=== PATIENT | female | born 1985 | race Caucasian/White ===

== ENCOUNTER 2019-03-29 15:56 | Inpatient (IN) | payer BC ==
[2019-03-29] MEDS ORDERED: ONDANSETRON 4 MG/2 ML VIAL IVP PRN (16:40)
[2019-03-29] MEDS ORDERED: LACTATED RINGERS 1,000 ML IV ONE (16:40)
[2019-03-29] MEDS ORDERED: NALOXONE 0.4 MG/ML 1 ML VIAL IV PRN (16:40)
[2019-03-29] MEDS: IOPAMIDOL CONTRAST (ORAL USE) VIAL PO PRN ×2 (17:20→18:19)
[2019-03-29 17:24] LABS: Basophils % (A) 1 %; Eosinophils % (A) 1 %; HCT 38.2 % (34.0-46.0); Lymphocytes # (A) 1.9 k/uL (1.0-4.8); Lymphocytes % (A) 31 %; MCH 30.6 pg (25.0-35.0); MCHC 31.5 g/dL (31.0-37.0); MCV 97.1 fL (80.0-100.0); Mean Platelet Volume 6.3; Monocytes # (A) 0.3 k/uL (0-1.0); Monocytes % (A) 5 %; Neutrophils # (A) 3.6 k/uL (1.3-7.7); Neutrophils % (A) 61 %; Platelet Count 274 k/uL (150-450); RBC 3.93 m/uL (3.80-5.40); RDW 12.3 % (11.5-15.5); WBC 5.9 k/uL (3.8-10.6)
[2019-03-29 17:33] LABS: ALT 16 U/L (9-52); AST 21 U/L (14-36); African American GFR (CKD) >90 (>60 ml/min/1.73 sqM); Albumin 4.2 g/dL (3.5-5.0); Alkaline Phosphatase 42 U/L (38-126); Anion Gap 6 mmol/L; Blood Urea Nitrogen 12 mg/dL (7-17); Calcium 9.3 mg/dL (8.4-10.2); Carbon Dioxide 26 mmol/L (22-30); Chloride 109 mmol/L (98-107); Glucose 93 mg/dL (74-99); Potassium 4.3 mmol/L (3.5-5.1); Sodium 141 mmol/L (137-145); Total Bilirubin 0.3 mg/dL (0.2-1.3)
[2019-03-29] MEDS: HYDROmorphone 0.5 MG/0.5 ML SYRINGE IVP PRN ×2 (18:45→21:59)
[2019-03-29 19:38] VITALS: BMI 29.3
--- NOTE | 2019-03-29 19:58 | CT ---
EXAMINATION TYPE: CT abdomen pelvis w con DATE OF EXAM: 03/29/2019 COMPARISON: None INDICATION: LLQ pain DLP: 902.9 mGycm, Automated exposure control for dose reduction was used. CONTRAST: 100 mL of Isovue 300. Study performed with Oral Contrast TECHNIQUE: Axial images were obtained from above the diaphragm to the pubic rami in the axial plane a t 5 mm thick sections. Reconstructed images are reviewed on the computer in the coronal plane. FINDINGS: Limited CT sections are obtained the lung bases. The lung bases are clear. CT ABDOMEN: LAP-BAND is present. Liver: Normal Spleen: Normal Pancreas: Normal Adrenal glands: The adrenal glands are normal. Gallbladder: Normal Kidneys: No masses are evident. No hydronephrosis is present. No cysts are present. Delayed images were obtained through the kidneys, which remain unremarkable. Aorta: Vascular calcification is within the aorta. Inferior vena cava: Normal. CT PELVIS: Loops of bowel within the abdomen and pelvis are normal. There are loops of bowel lacking oral co ntrast limiting their evaluation. Appendix: Not visualized Urinary bladder: Normal Genitourinary structures: Uterus is normal. Adnexal regions are clear. Osseous structures: No suspicious lytic or sclerotic lesions. IMPRESSIONS: 1. No significant abnormality to account for left lower quadrant pain
[2019-03-29] MEDS: HYDROcodone/APAP 5-325MG 1 EACH TAB PO PRN (20:34)
[2019-03-30] MEDS: HYDROmorphone 0.5 MG/0.5 ML SYRINGE IVP PRN ×2 (02:57→07:56)
[2019-03-30] MEDS ORDERED: LACTATED RINGERS 1,000 ML IV ONE ×2 (09:41)
[2019-03-30] MEDS ORDERED: LIDOCAINE 1% INJ 10MG/ML (20 ML MDV) ONE (09:43)
[2019-03-30] MEDS ORDERED: PROPOFOL 10 MG/ML 20 ML VIAL IV ONE (09:43)
--- NOTE | 2019-03-30 09:46 | P.GSHP ---
History of Present Illness H&P Date: 03/29/19 This is a 33-year-old female who was seen in bariatric office. Patient had significant left-sided abdominal pain. Patient had some rebound tenderness. Patient was admitted to the hospital for further workup. She states that her pain has been on-and-off for the last 2 weeks. She describes the pain is disabling. Past Medical History Past Medical History: No Reported History History of Any Multi-Drug Resistant Organisms: None Reported Past Surgical History: Bariatric Surgery, Section, Cholecystectomy, Tubal Ligation Additional Past Surgical History / Comment(s): lap band placed [address] Kaufman, Tubal ligation x2, Right oopherectomy, cervical ablation, cervix re moved, bilateral breast augmentation, x1 Past Anesthesia/Blood Transfusion Reactions: No Reported Reaction Additional Past Anesthesia/Blood Transfusion Reaction / Comment(s): No hx of blood transfusions to date Past Psychological History: No Psychological Hx Reported Smoking Status: Former smoker Past Alcohol Use History: None Reported Additional Past Alcohol Use History / Comment(s): smoked 1pk day x 10 years. Quit 2008 Past Drug Use History: None Reported - Past Family History Father Family Medical History: Diabetes Mellitus, Hyperlipidemia, Prostate Disorder Additional Family Medical History / Comment(s): Type 2 DM, BPH Medications and Allergies Home Medications Medication Instructions Recorded Confirmed Type No Known Home Medications 05/12/17 03/29/19 History Allergies Allergy/AdvReac Type Severity Reaction Status Date / Time No Known Allergies Allergy Verified 03/29/19 18:35 Surgical - Exam Vital Signs Temp Pulse BP Pulse Ox 97.8 F 75 104/66 99 03/29/19 02:20 03/29/19 02:20 03/29/19 02:20 03/29/19 02:20 - General well developed, well nourished, no distress - Eyes PERRL - ENT normal pinna - Neck no masses - Respiratory normal expansion - Cardiovascular Rhythm: regular - Abdomen Marked tenderness left side of abdomen. With guarding Abdomen: soft Results - Labs 03/29/19 17:12 03/29/19 17:12 Abnormal Lab Results - Last 24 Hours (Table) 03/29/19 Range/Units 17:12 Chloride 109 H (98-107) mmol/L Diabetes panel 03/29/19 Range/Units 17:12 Sodium 141 (137-145) mmol/L Potassium 4.3 (3.5-5.1) mmol/L Chloride 109 H (98-107) mmol/L Carbon Dioxide 26 (22-30) mmol/L BUN 12 (7-17) mg/dL Creatinine 0.76 (0.52-1.04) mg/dL Glucose 93 (74-99) mg/dL Calcium 9.3 (8.4-10.2) mg/dL AST 21 (14-36) U/L ALT 16 (9-52) U/L Alkaline Phosphatase 42 (38-126) U/L Total Protein 7.0 (6.3-8.2) g/dL Albumin 4.2 (3.5-5.0) g/dL Calcium panel 03/29/19 Range/Units 17:12 Calcium 9.3 (8.4-10.2) mg/dL Albumin 4.2 (3.5-5.0) g/dL Pituitary panel 03/29/19 Range/Units 17:12 Sodium 141 (137-145) mmol/L Potassium 4.3 (3.5-5.1) mmol/L Chloride 109 H (98-107) mmol/L Carbon Dioxide 26 (22-30) mmol/L BUN 12 (7-17) mg/dL Creatinine 0.76 (0.52-1.04) mg/dL Glucose 93 (74-99) mg/dL Calcium 9.3 (8.4-10.2) mg/dL Adrenal panel 03/29/19 Range/Units 17:12 Sodium 141 (137-145) mmol/L Potassium 4.3 (3.5-5.1) mmol/L Chloride 109 H (98-107) mmol/L Carbon Dioxide 26 (22-30) mmol/L BUN 12 (7-17) mg/dL Creatinine 0.76 (0.52-1.04) mg/dL Glucose 93 (74-99) mg/dL Calcium 9.3 (8.4-10.2) mg/dL Total Bilirubin 0.3 (0.2-1.3) mg/dL AST 21 (14-36) U/L ALT 16 (9-52) U/L Alkaline Phosphatase 42 (38-126) U/L Total Protein 7.0 (6.3-8.2) g/dL Albumin 4.2 (3.5-5.0) g/dL Assessment and Plan Assessment: Left-sided abdominal pain. Patient was admitted to hospital for further workup.
--- NOTE | 2019-03-30 09:54 | P.OP ---
Date of Procedure: 03/30/19 Preoperative Diagnosis: Abdominal pain Postoperative Diagnosis: Antral gastritis Procedure(s) Performed: EGD Anesthesia: MAC Surgeon: Luis Enrique Kaufman Pathology: other (antrum) Condition: stable Disposition: PACU Description of Procedure: The patient's placed on the endoscopy table in the lateral position. She received IV sedation. The gastroscope was placed oropharynx and passed in the esophagus and into the stomach. The scope was then placed through the pylorus. The first and second portion of duodenum appeared normal. There is no incision any duodenitis or ulcers. The scope was then brought back and the antrum and this was mildly inflamed. A abscess performed. The scope was unretroflexed and the remainder of the stomach appeared normal. There was no significant inflammatory changes seen around the patient's LAP-BAND. The gastric pouch appeared small above the band. The GE junction was at 40 cm the distal esophagus appeared normal. The proximal esophagus appeared normal. Scope was withdrawn for patient.
--- NOTE | 2019-03-30 09:56 | P.PN ---
Progress Note - Text Progress Note Date: 03/30/19 The patient feels better. Her left lower quadrant pain is improved. She has minimal complaints of nausea. Her EGD performed showed evidence of minimal gastritis. The patient will be fed and if she tolerates a regular diet she'll be discharged home today.
[2019-03-30 10:17] LABS: Basophils % (A) 1 %; Eosinophils # (A) 0.1 k/uL (0-0.7); Eosinophils % (A) 1 %; HCT 34.1 % (34.0-46.0); HGB 11.2 gm/dL (11.4-16.0); Lymphocytes # (A) 1.6 k/uL (1.0-4.8); Lymphocytes % (A) 42 %; MCH 31.5 pg (25.0-35.0); MCV 95.6 fL (80.0-100.0); Mean Platelet Volume 5.7; Monocytes # (A) 0.3 k/uL (0-1.0); Monocytes % (A) 7 %; Neutrophils # (A) 1.8 k/uL (1.3-7.7); Neutrophils % (A) 47 %; Platelet Count 241 k/uL (150-450); RBC 3.56 m/uL (3.80-5.40); RDW 12.1 % (11.5-15.5); WBC 3.9 k/uL (3.8-10.6)
[2019-03-30] MEDS: HYDROcodone/APAP 5-325MG 1 EACH TAB PO PRN ×2 (10:38→21:14)
[2019-03-30] MEDS ORDERED: IBUPROFEN 600 MG TAB PO STA (12:13)
--- NOTE | 2019-03-30 13:11 | P.CONS ---
History of Present Illness - Reason for Consult Consult date: 03/30/19 Medical management - Chief Complaint Abdominal discomfort - History of Present Illness Patient is a 32-year-old female with a known history of lap band placement in by Dr. Obregon 2009 and previous history of smoking came to ER with complaints of left upper quadrant abdominal discomfort and feeling fullness last bloating for the past 1 week. Denied in diarrhea or recent illnesses. Patient does have minimally discomfort rather than pain. Patient does have nausea or supple vomiting. No fever no chills. CT of abdomen pelvis done in the ER showed no significant abnormality. Patient underwent EGD which showed mild gastritis. currently patient is tolerating oral diet. Laboratory data reviewed. Review of Systems Constitutional: Patient denies any fever or chills . No generalized weakness or weight loss. Abdomen: Patient denied nausea vomiting and diarrhea and abdominal pain. Bloating sensation Cardiovascular: Patient denies any chest pain or short of breath no palpitations. Respiratory: patient denied any cough is from production. No shortness of breath Neurologic: Patient denied any numbness or tingling headache. Musculoskeletal: Patient denies any complaints of joint swelling or deformity. Skin: Negative Psychiatric: Negative Endocrine: No heat or cold intolerance. No recent weight gain. Genitourinary: No dysuria or hematuria. All other 14 point ROS negative except the above Past Medical History Past Medical History: No Reported History History of Any Multi-Drug Resistant Organisms: None Reported Past Surgical History: Bariatric Surgery, Section, Cholecystectomy, Tubal Ligation Additional Past Surgical History / Comment(s): lap band placed [address] Kaufman, Tubal ligation x2, Right oopherectomy, cervical ablation, cervix removed, bilateral breast augmentation, x1 Past Anesthesia/Blood Transfusion Reactions: No Reported Reaction Additional Past Anesthesia/Blood Transfusion Reaction / Comm: No hx of blood transfusions to date Past Psychological History: No Psychological Hx Reported Smoking Status: Former smoker Past Alcohol Use History: None Reported Additional Past Alcohol Use History / Comment(s): smoked 1pk day x 10 years. Quit 2008 Past Drug Use History: None Reported - Past Family History Father Family Medical History: Diabetes Mellitus, Hyperlipidemia, Prostate Disorder Additional Family Medical History / Comment(s): Type 2 DM, BPH Medications and Allergies Home Medications Medication Instructions Recorded Confirmed Type No Known Home Medications 05/12/17 03/29/19 History Allergies Allergy/AdvReac Type Severity Reaction Status Date / Time No Known Allergies Allergy Verified 03/29/19 18:35 Physical Exam Vitals: Vital Signs Temp Pulse Resp BP Pulse Ox 03/30/19 10:16 98.2 F 67 93/60 03/30/19 07:00 98.4 F 70 12 97/61 100 03/29/19 20:25 98.2 F 71 16 96/57 97 03/29/19 17:00 98.4 F 77 18 122/63 98 Intake and Output 03/29/19 03/30/19 03/30/19 22:59 06:59 14:59 Intake Total 500 1000 100 Balance 500 1000 100 Intake: IV 100 Intake, IV Titration 500 1000 Amount Lactated Ringers 1,000 ml 500 1000 @ 125 mls/hr IV .Q8H ONE Rx#:[id number] Other: Weight 85 kg PHYSICAL EXAMINATION: Patient is lying in the bed comfortably, no acute distress, awake alert and oriented.. HEENT: Normocephalic. Neck is supple. Pupils reactive. Nostrils clear. Oral cavity is moist. Ears reveal no drainage. Neck reveals no JVD, carotid bruits, or thyromegaly. CHEST EXAMINATION: Trachea is central. Symmetrical expansion. Lung reyes clear to auscultation and percussion. CARDIAC: Normal S1, S2 with no gallops. No murmurs ABDOMEN: Soft. Bowel sounds normal. No organomegaly. No abdominal bruits. Extremities: reveal no edema. No clubbing or cyanosis Neurologically awake, alert, oriented x3 with well-coordinated movements. No focal deficits noted Skin: No rash or skin lesions. Psychiatric: Coperative. Nonsuicidal Musculoskeletal: No joint swelling or deformity. Normal range of motion. Results CBC & Chem 7: 03/30/19 09:15 03/29/19 17:12 Labs: Abnormal Lab Results - Last 24 Hours (Table) 03/29/19 03/30/19 Range/Units 17:12 09:15 RBC 3.56 L (3.80-5.40) m/uL Hgb 11.2 L (11.4-16.0) gm/dL Chloride 109 H (98-107) mmol/L Assessment and Plan Assessment: Abdominal bloating and discomfort secondary to mild antral gastritis. Status post EGD History of lap band in [address] Kaufman. History of smoking History of cholecystectomy and tubal ligation DVT prophylaxis Plan: Patient will be continued on this. ECG showed mild gastritis. Patient able to tolerate oral diet. Anticipate discharge once clinically improves. Would recommend PPI for 4 weeks. Further recommendations based on clinical course. Time with Patient: Greater than 30
[2019-03-30] MEDS ORDERED: ONDANSETRON 4 MG/2 ML VIAL IVP PRN (14:13)
[2019-03-30] MEDS: LACTATED RINGERS 1,000 ML IV SCH ×2 (15:02→22:22)
[2019-03-30 19:38] LABS: African American GFR (CKD) 130.1 (60.0-200.0); Albumin 3.9 g/dL (3.80-4.90); Albumin/Globulin Ratio 2.29 (1.60-3.17); Anion Gap 4.9 mmol/L (4.00-12.00); BUN/Creat Ratio 12.86 Ratio (12.00-20.00); Calcium 8.7 mg/dL (8.7-10.3); Carbon Dioxide 26.1 mmol/L (21.6-31.8); Globulin 1.7 g/dL (1.6-3.3); Total Bilirubin 0.7 mg/dL (0.3-1.2); Total Protein 5.6 g/dL (6.2-8.2)
[2019-03-31] MEDS: HYDROmorphone 0.5 MG/0.5 ML SYRINGE IVP PRN (04:52)
[2019-03-31] MEDS: LACTATED RINGERS 1,000 ML IV SCH (06:23)
[2019-03-31 07:28] VITALS: TEMP 98.2
[2019-03-31] MEDS ORDERED: KETOROLAC 30 MG/ML 1 ML VIAL IVP PRN (09:14)
[2019-03-31] MEDS ORDERED: SODIUM CHLORIDE 0.9% 500 ML 500 ML IV ONE (09:15)
[2019-03-31 10:12] VITALS: BP 95/62; PULSE 72; RESP 16
[2019-03-31] MEDS ORDERED: PANTOPRAZOLE 40 MG TABLET PO SCH (10:45)
--- NOTE | 2019-03-31 14:15 | P.DS ---
Providers Date of admission: 03/29/19 16:12 Expected date of discharge: 03/31/19 Attending physician: Luis Enrique Kaufman Consults: 03/29/19 16:40 Consult Physician Routine Consulting Provider: Ralph Walsh Consult Reason/Comments: Medical management Do you want consulting provider notified?: Yes Primary care physician: Stated None Hospital Course: 33-year-old female who was admitted to the hospital secondary to abdominal pain. Patient was evaluated by Dr. Kaufman. She underwent EGD revealing antral gastritis. Patient is doing well after her EGD. She is tolerating diet without nausea or vomiting. No further abdominal pain. She is stable for discharge home today. She is to follow up with Dr. Kaufman outpatient. Please see EMR for further hospital course details. Discharge diagnosis 1. Abdominal pain, status post EGD revealing antral gastritis Nurse practitioner note has been reviewed by physician. Signing provider agrees with the documented findings, assessment, and plan of care. Plan - Discharge Summary New Discharge Prescriptions: New Pantoprazole [Protonix] 40 mg PO AC-BRKFST #28 tablet. Discharge Medication List Pantoprazole [Protonix] 40 mg PO AC-BRKFST #28 tablet. 03/31/19 [Rx] Follow up App[facility]ment(s[facility]Ref[facility] [place] [facility] - 04/12/19 1:20 pm Patient Instructions/Handouts: Acute Abdominal Pain (DC), Upper Endoscopy (DC) Discharge Disposition: HOME SELF-CARE
== END 2019-03-31 13:15 | disposition home or self-care (01) | DRG 392 ==
LOC: 4SSUR 16:12
PROVIDERS: ADMIT Surgery; ATTEND Surgery
PROC: 0DB78ZX Excision of Stomach, Pylorus, Via Natural or Artificial Opening Endoscopic, Diagnostic (ICD-10-PCS; principal; 2019-03-30 09:20)
DX: K29.70 Gastritis, unspecified, without bleeding (principal); Z90.49 Acquired absence of other specified parts of digestive tract; Z98.891 History of uterine scar from previous surgery; Z98.890 Other specified postprocedural states; Z98.84 Bariatric surgery status; Z98.51 Tubal ligation status; Z90.721 Acquired absence of ovaries, unilateral; Z87.891 Personal history of nicotine dependence; Z83.3 Family history of diabetes mellitus; Z83.438 Family history of other disorder of lipoprotein metabolism and other lipidemia; Z84.2 Family history of other diseases of the genitourinary system
CPT/HCPCS: 43239; 74177; 80053; 81025; 85025; 88305

== ENCOUNTER → 2019-03-29 | Outpatient (CLI) | payer BC ==
[~2019-03-29] MED LIST: HYDROmorphone 0.5 MG/0.5 ML SYRINGE IVP PRN; IOPAMIDOL CONTRAST (ORAL USE) VIAL PO PRN; LACTATED RINGERS 1,000 ML IV ONE; NALOXONE 0.4 MG/ML 1 ML VIAL IV PRN; ONDANSETRON 4 MG/2 ML VIAL IVP PRN
[2019-03-29 15:43] VITALS: BP 120/75; PULSE 83; TEMP 98.2; BMI 29.2
--- NOTE | 2019-03-29 16:38 | P.HPBAR ---
Bariatric H&P - History & Physicial H&P Date: 03/29/19 History & Physicial: Visit/CC: abdominal pain Patient initial contact: Initial weight: 111.13 kg Initial weight in pounds: 245.00 Height: 5 ft 7 in Initial BMI: 38.3 Last weight: Current weight: 84.822 kg Current weight in pounds: 187.00 Current BMI: 29.2 [place] body weight (based on NIH guidelines): 61.235 kg Excess body weight loss: 52.7% The patient is a 33 year-old F who presents for Bariatric Assessment. Patient presents today for lab band follow up. She's had complaints of left-sided abdominal pain for approximately one week. She states the pain is debilitating. She currently rates her pain is a 10. She had difficulty walking from her car. Past Medical History Past Medical History: No Reported History History of Any Multi-Drug Resistant Organisms: None Reported Past Surgical History: Bariatric Surgery, Section, Cholecystectomy, Tubal Ligation Additional Past Surgical History / Comment(s): lap band placed [address] Kaufman, Tubal ligation x2, Right oopherectomy, cervical ablation, cervix removed, bilateral breast augmentation, x1 Past Anesthesia/Blood Transfusion Reactions: No Reported Reaction Additional Past Anesthesia/Blood Transfusion Reaction / Comm: No hx of blood transfusions to date Smoking Status: Former smoker - Past Family History Father Family Medical History: Diabetes Mellitus, Hyperlipidemia, Prostate Disorder Additional Family Medical History / Comment(s): Type 2 DM, BPH Surgical - Exam Vital Signs Temp Pulse BP 98.2 F 83 120/75 03/29/19 15:35 03/29/19 15:35 03/29/19 15:35 - General well developed - Eyes PERRL - ENT normal pinna - Neck no masses - Respiratory normal expansion - Cardiovascular Rhythm: regular - Abdomen Significant left-sided abdominal pain. There is some rebound tenderness. Abdomen: soft Bariatric Assessment & Plan Plan: Acute left-sided abdominal pain. Patient undergoes CAT scan of the abdomen. We'll order labs. She'll be admitted for observation. Bariatric Checklist Checklist: Plan: Checklist: EGD: 1. Hiatal hernia: 2. H. Pylori: HgbA1c: Vitamin D: Smoking: Former smoker Primary care physician referral: [facility], Mingnathan Soto ([phone]) Psychiatry clearance: Cardiology clearance: Sleep study: Diet journal: VTE risk score: VTE risk level: Rehab needs at discharge:
== END | disposition home or self-care (01) ==
LOC: BARWHC3 15:14
PROVIDERS: ATTEND Surgery
DX: Z48.815 Encounter for surgical aftercare following surgery on the digestive system (principal); R10.9 Unspecified abdominal pain; Z87.891 Personal history of nicotine dependence; Z98.84 Bariatric surgery status; Z90.49 Acquired absence of other specified parts of digestive tract
CPT/HCPCS: 99211

== ENCOUNTER → 2019-04-12 | Outpatient (CLI) | payer BC ==
[2019-04-12 16:01] VITALS: BP 118/76; PULSE 76; TEMP 97.7; BMI 29.1
--- NOTE | 2019-04-12 16:10 | P.HPBAR ---
Bariatric H&P - History & Physicial H&P Date: 04/12/19 History & Physicial: Visit/CC: lap band follow up Patient initial contact: Initial weight: 111.13 kg Initial weight in pounds: 245.00 Height: 5 ft 7 in Initial BMI: 38.3 Last weight: Current weight: 84.368 kg Current weight in pounds: 186.00 Current BMI: 29.1 [place] body weight (based on NIH guidelines): 61.235 kg Excess body weight loss: 53.6% The patient is a 34 year-old F who presents for Bariatric Assessment. Patient presents today for lab band follow up. Patient has no further abdominal pain. She is requesting a fill of her band. He is hungry. Past Medical History Past Medical History: No Reported History History of Any Multi-Drug Resistant Organisms: None Reported Past Surgical History: Bariatric Surgery, Section, Cholecystectomy, Tubal Ligation Additional Past Surgical History / Comment(s): lap band placed [address] Kaufman, Tubal ligation x2, Right oopherectomy, cervical ablation, cervix removed, bilateral breast augmentation, x1 Past Anesthesia/Blood Transfusion Reactions: No Reported Reaction Additional Past Anesthesia/Blood Transfusion Reaction / Comm: No hx of blood transfusions to date Smoking Status: Former smoker - Past Family History Father Family Medical History: Diabetes Mellitus, Hyperlipidemia, Prostate Disorder Additional Family Medical History / Comment(s): Type 2 DM, BPH Surgical - Exam Vital Signs Temp Pulse BP 97.7 F 76 118/76 04/12/19 15:57 04/12/19 15:57 04/12/19 15:57 - General well developed, well nourished, no distress - Eyes PERRL - ENT normal pinna - Neck no masses - Respiratory normal expansion - Cardiovascular Rhythm: regular - Abdomen Abdomen: soft, non tender Bariatric Assessment & Plan Plan: Patient's lap band was adjusted. She had 0.5 mL added to her band. She currently has 5 mL in the band. She'll follow-up in 4 weeks. Bariatric Checklist Checklist: Plan: Checklist: EGD: 1. Hiatal hernia: 2. H. Pylori: HgbA1c: Vitamin D: Smoking: Former smoker Primary care physician referral: [facility], [facility] ([phone]) Psychiatry clearance: Cardiology clearance: Sleep study: Diet journal: VTE risk score: VTE risk level: Rehab needs at discharge:
== END ==
LOC: BARWHC3 13:04
PROVIDERS: ATTEND Surgery
DX: Z46.51 Encounter for fitting and adjustment of gastric lap band (principal); Z98.84 Bariatric surgery status; Z87.891 Personal history of nicotine dependence; Z90.49 Acquired absence of other specified parts of digestive tract; Z98.51 Tubal ligation status
CPT/HCPCS: 99212

== ENCOUNTER → 2019-05-17 | Outpatient (CLI) | payer BC ==
[2019-05-17 14:16] VITALS: BP 108/68; PULSE 65; TEMP 98.2; BMI 29.1
--- NOTE | 2019-05-17 18:24 | P.HPBAR ---
Bariatric H&P - History & Physicial H&P Date: 05/17/19 History & Physicial: Visit/CC: follow up Patient initial contact: Initial weight: 111.13 kg Initial weight in pounds: 245.00 Height: 5 ft 7 in Initial BMI: 38.3 Last weight: Current weight: 84.368 kg Current weight in pounds: 186.00 Current BMI: 29.1 [place] body weight (based on NIH guidelines): 61.235 kg Excess body weight loss: 53.6% The patient is a 34 year-old F who presents for Bariatric Assessment. Patient presents today for lab band follow up. She's had excellent weight loss. She denies any significant dysphagia. She's had some minimal GERD. Her left-sided abdominal pain has resolved. Past Medical History Past Medical History: No Reported History History of Any Multi-Drug Resistant Organisms: None Reported Past Surgical History: Bariatric Surgery, Section, Cholecystectomy, Tubal Ligation Additional Past Surgical History / Comment(s): lap band placed [address] Kaufman, Tubal ligation x2, Right oopherectomy, cervical ablation, cervix removed, bilateral breast augmentation, x1 Past Anesthesia/Blood Transfusion Reactions: No Reported Reaction Additional Past Anesthesia/Blood Transfusion Reaction / Comm: No hx of blood transfusions to date Past Psychological History: No Psychological Hx Reported Smoking Status: Former smoker Past Alcohol Use History: None Reported Additional Past Alcohol Use History / Comment(s): smoked 1pk day x 10 years. Quit 2008 Past Drug Use History: None Reported - Past Family History Father Family Medical History: Diabetes Mellitus, Hyperlipidemia, Prostate Disorder Additional Family Medical History / Comment(s): Type 2 DM, BPH Surgical - Exam Vital Signs Temp Pulse BP 98.2 F 65 108/68 05/17/19 14:13 05/17/19 14:13 05/17/19 14:13 - General well developed, well nourished - Eyes PERRL - ENT normal pinna - Neck no masses - Respiratory normal expansion - Cardiovascular Rhythm: regular - Abdomen Abdomen: soft, non tender Bariatric Assessment & Plan Plan: Status post lap band procedure. Patient's left-sided abdominal pain has resolved. She has minimal GERD which we observed. She'll follow-up in 4 weeks. Bariatric Checklist Checklist: Plan: Checklist: EGD: 1. Hiatal hernia: 2. H. Pylori: HgbA1c: Vitamin D: Smoking: Former smoker Primary care physician referral: [facility] ) Psychiatry clearance: Cardiology clearance: Sleep study: Diet journal: VTE risk score: VTE risk level: Rehab needs at discharge:
== END | disposition home or self-care (01) ==
LOC: BARWHC3 13:20
PROVIDERS: ATTEND Surgery
DX: Z46.51 Encounter for fitting and adjustment of gastric lap band (principal); K21.9 Gastro-esophageal reflux disease without esophagitis; Z87.891 Personal history of nicotine dependence; Z98.84 Bariatric surgery status; Z98.51 Tubal ligation status; Z90.49 Acquired absence of other specified parts of digestive tract
CPT/HCPCS: 99211

== ENCOUNTER → 2020-11-23 | Outpatient (CLI) | payer BC ==
--- NOTE | 2020-11-23 12:40 | FL ---
EXAMINATION TYPE: FL barium swallow DATE OF EXAM: 11/23/2020 LAP BANDING LIMITED ESOPHAGRAM: CLINICAL HISTORY: History of lap band 10 years ago. Patient now presents with dysphagia TECHNIQUE: Limited esophagram is performed utilizing 2-3 oz of barium. 34 seconds fluoroscopy time. Frontal view abdomen [employer] and 4 fluoroscopy images. COMPARISON: 1020 06/30/2018. FINDINGS: Pre-procedure field appraiser image shows lap band in satisfactory position in proximal stomach ju st below the gastroesophageal junction with Phi angle measuring 54 degrees. The patient then drank 2 swallows of thin barium oral contrast. No transit of contrast was seen through the lap band even after several minutes of visualization, con sistent with obstruction. On fluoroscopy imaging, LAP-BAND appeared slightly oblique. IMPRESSION: Complete obstruction at the level of the lap band. Findings were explained to the patient. Patient wa s sent immediately back to the referring doctor's office with progress note.
== END | disposition home or self-care (01) ==
LOC: RADUSWWP 11:20
PROVIDERS: ATTEND Surgery
DX: R13.10 Dysphagia, unspecified (principal); Z98.84 Bariatric surgery status
CPT/HCPCS: 74220

== ENCOUNTER → 2020-11-23 | Outpatient (CLI) | payer BC ==
[2020-11-23 12:44] VITALS: BP 118/75; PULSE 80; RESP 16; TEMP 97.8; BMI 29.1
--- NOTE | 2021-01-31 11:24 | P.HPBAR ---
Bariatric H&P - History & Physicial H&P Date: 11/23/20 History & Physicial: Visit/CC: Band adj Patient initial contact: Initial weight: 111.13 kg Initial weight in pounds: 245.00 Height: 5 ft 7 in Initial BMI: 38.3 Last weight: Current weight: 84.368 kg Current weight in pounds: 186.00 Current BMI: 29.1 [place] body weight (based on NIH guidelines): 61.235 kg Excess body weight loss: 53.6% The patient is a 35 year-old F who presents for Bariatric Assessment. Patient presents today for dysphagia. Past Medical History Past Medical History: No Reported History History of Any Multi-Drug Resistant Organisms: None Reported Past Surgical History: Bariatric Surgery, Section, Cholecystectomy, Tubal Ligation Additional Past Surgical History / Comment(s): lap band placed [address] Kaufman, Tubal ligation x2, Right oopherectomy, cervical ablation, cervix removed, bilateral breast augmentation, x1 Past Anesthesia/Blood Transfusion Reactions: No Reported Reaction Additional Past Anesthesia/Blood Transfusion Reaction / Comm: No hx of blood transfusions to date Past Psychological History: No Psychological Hx Reported Smoking Status: Unknown if ever smoked Past Alcohol Use History: None Reported Additional Past Alcohol Use History / Comment(s): smoked 1pk day x 10 years. Quit 2008 Past Drug Use History: None Reported - Past Family History Father Family Medical History: Diabetes Mellitus, Hyperlipidemia, Prostate Disorder Additional Family Medical History / Comment(s): Type 2 DM, BPH Surgical - Exam Vital Signs Temp Pulse Resp BP 97.8 F 80 16 118/75 11/23/20 12:40 11/23/20 12:40 11/23/20 12:40 11/23/20 12:40 - General well developed, well nourished, no distress - Eyes PERRL - ENT normal pinna - Neck no masses - Respiratory normal expansion - Cardiovascular Rhythm: regular - Abdomen Abdomen: soft, non tender Bariatric Assessment & Plan Plan: Dysphagia. Patient will undergo esophagram. Bariatric Checklist Checklist: Plan: Checklist: EGD: 1. Hiatal hernia: 2. H. Pylori: HgbA1c: Vitamin D: Smoking: Former smoker Primary care physician referral: [facility] [place], [place] ([phone]) Psychiatry clearance: Cardiology clearance: Sleep study: Diet journal: VTE risk score: VTE risk level: Rehab needs at discharge:
== END ==
LOC: BARWHC3 12:34
PROVIDERS: ATTEND Surgery
DX: R13.10 Dysphagia, unspecified (principal); Z98.84 Bariatric surgery status; Z87.891 Personal history of nicotine dependence
CPT/HCPCS: 99212

== ENCOUNTER → 2020-11-27 | Outpatient (CLI) | payer BC ==
[2020-11-27 14:50] VITALS: BP 120/75; PULSE 76; RESP 18; TEMP 97.3; BMI 29.2
--- NOTE | 2021-01-31 11:49 | P.HPBAR ---
Bariatric H&P - History & Physicial H&P Date: 11/27/20 History & Physicial: Visit/CC: follow up Patient initial contact: Initial weight: 111.13 kg Initial weight in pounds: 245.00 Height: 5 ft 7 in Initial BMI: 38.3 Last weight: Current weight: 84.822 kg Current weight in pounds: 187.00 Current BMI: 29.2 [place] body weight (based on NIH guidelines): 61.235 kg Excess body weight loss: 52.7% The patient is a 35 year-old F who presents for Bariatric Assessment. Patient is requesting a fill of her band. She currently feels hungry Past Medical History Past Medical History: No Reported History History of Any Multi-Drug Resistant Organisms: None Reported Past Surgical History: Bariatric Surgery, Section, Cholecystectomy, Tubal Ligation Additional Past Surgical History / Comment(s): lap band placed [address] Kaufman, Tubal ligation x2, Right oopherectomy, cervical ablation, cervix removed, bilateral breast augmentation, x1 Past Anesthesia/Blood Transfusion Reactions: No Reported Reaction Additional Past Anesthesia/Blood Transfusion Reaction / Comm: No hx of blood transfusions to date Past Psychological History: No Psychological Hx Reported Smoking Status: Unknown if ever smoked Past Alcohol Use History: None Reported Additional Past Alcohol Use History / Comment(s): smoked 1pk day x 10 years. Quit 2008 Past Drug Use History: None Reported - Past Family History Father Family Medical History: Diabetes Mellitus, Hyperlipidemia, Prostate Disorder Additional Family Medical History / Comment(s): Type 2 DM, BPH Surgical - Exam Vital Signs Temp Pulse Resp BP 97.3 F L 76 18 120/75 11/27/20 14:47 11/27/20 14:47 11/27/20 14:47 11/27/20 14:47 - General well developed, well nourished, no distress - Eyes PERRL - ENT normal pinna - Neck no masses - Cardiovascular Rhythm: regular - Abdomen Abdomen: soft, non tender Bariatric Assessment & Plan Plan: Patient LAP-BAND was adjusted. She had 3 mL added to her band. She will follow-up in 4 weeks Bariatric Checklist Checklist: Plan: Checklist: EGD: 1. Hiatal hernia: 2. H. Pylori: HgbA1c: Vitamin D: Smoking: Former smoker Primary care physician referral: [facility] ([phone]) Psychiatry clearance: Cardiology clearance: Sleep study: Diet journal: VTE risk score: VTE risk level: Rehab needs at discharge:
== END ==
LOC: BARWHC3 13:58
PROVIDERS: ATTEND Surgery
DX: Z46.51 Encounter for fitting and adjustment of gastric lap band (principal); Z87.891 Personal history of nicotine dependence; Z98.84 Bariatric surgery status
CPT/HCPCS: 99211

== ENCOUNTER → 2021-04-02 | Outpatient (CLI) | payer BC ==
[2021-04-02 13:25] VITALS: BP 124/72; PULSE 68; RESP 18; TEMP 98; BMI 31.1
--- NOTE | 2021-04-19 19:24 | P.HPBAR ---
Bariatric H&P - History & Physicial H&P Date: 04/02/21 History & Physicial: Visit/CC: follow up / lap band Patient initial contact: Initial weight: 111.13 kg Initial weight in pounds: 245.00 Height: 5 ft 7 in Initial BMI: 38.3 Last weight: Current weight: 90.265 kg Current weight in pounds: 199.00 Current BMI: 31.1 [place] body weight (based on NIH guidelines): 61.235 kg Excess body weight loss: 41.8% The patient is a 36 year-old F who presents for Bariatric Assessment. Patient presents today for LAP-BAND follow-up. She is requesting a fill of her LAP- BAND. She is currently hungry. Past Medical History Past Medical History: No Reported History History of Any Multi-Drug Resistant Organisms: None Reported Past Surgical History: Bariatric Surgery, Section, Cholecystectomy, T ubal Ligation Additional Past Surgical History / Comment(s): lap band placed [address] Kaufman, Tubal ligation x2, Right oopherectomy, cervical ablation, cervix removed, bilateral breast augmentation, x1 Past Anesthesia/Blood Transfusion Reactions: No Reported Reaction Additional Past Anesthesia/Blood Transfusion Reaction / Comm: No hx of blood transfusions to date Past Psychological History: No Psychological Hx Reported Smoking Status: Unknown if ever smoked Past Alcohol Use History: None Reported Additional Past Alcohol Use History / Comment(s): smoked 1pk day x 10 years. Quit 2008 Past Drug Use History: None Reported - Past Family History Father Family Medical History: Diabetes Mellitus, Hyperlipidemia, Prostate Disorder Additional Family Medical History / Comment(s): Type 2 DM, BPH Surgical - Exam Vital Signs Temp Pulse Resp BP 98 F 68 18 124/72 04/02/21 12:56 04/02/21 12:56 04/02/21 12:56 04/02/21 12:56 - General well developed, well nourished, no distress - Eyes PERRL - ENT normal pinna - Neck no masses - Respiratory normal expansion - Cardiovascular Rhythm: regular - Abdomen Abdomen: soft, non tender Bariatric Assessment & Plan Plan: Patient LAP-BAND was adjusted. She had 2 mL added to her band. She currently has 5 mL in the band. Bariatric Checklist Checklist: Plan: Checklist: EGD: 1. Hiatal hernia: 2. H. Pylori: HgbA1c: Vitamin D: Smoking: Former smoker Primary care physician referral: [facility], [facility] ([phone]) Psychiatry clearance: Cardiology clearance: Sleep study: Diet journal: VTE risk score: VTE risk level: Rehab needs at discharge:
== END ==
LOC: BARWHC3 12:54
PROVIDERS: ATTEND Surgery
DX: Z46.51 Encounter for fitting and adjustment of gastric lap band (principal); Z98.84 Bariatric surgery status; Z87.891 Personal history of nicotine dependence
CPT/HCPCS: 99212

== ENCOUNTER → 2021-05-14 | Outpatient (CLI) | payer BC ==
[2021-05-14 14:25] VITALS: BP 114/78; PULSE 82; TEMP 98.2; BMI 30.7
--- NOTE | 2021-05-14 16:20 | P.HPBAR ---
Bariatric H&P - History & Physicial H&P Date: 05/14/21 History & Physicial: Visit/CC: lap band follow up Patient initial contact: Initial weight: 111.13 kg Initial weight in pounds: 245.00 Height: 5 ft 7 in Initial BMI: 38.3 Last weight: Current weight: 88.904 kg Current weight in pounds: 196.00 Current BMI: 30.7 [place] body weight (based on NIH guidelines): 61.235 kg Excess body weight loss: 44.5% The patient is a 36 year-old F who presents for Bariatric Assessment. Patient requesting a fill of her LAP-BAND. She currently feels hungry. Past Medical History Past Medical History: No Reported History History of Any Multi-Drug Resistant Organisms: None Reported Past Surgical History: Bariatric Surgery, Section, Cholecystectomy, Tubal Ligation Additional Past Surgical History / Comment(s): lap band placed [address] Kaufman, Tubal ligation x2, Right oopherectomy, cervical ablation, cervix removed, bilateral breast augmentation, x1 Past Anesthesia/Blood Transfusion Reactions: No Reported Reaction Additional Past Anesthesia/Blood Transfusion Reaction / Comm: No hx of blood transfusions to date Past Psychological History: No Psychological Hx Reported Smoking Status: Unknown if ever smoked Past Alcohol Use History: None Reported Additional Past Alcohol Use History / Comment(s): smoked 1pk day x 10 years. Quit 2008 Past Drug Use History: None Reported - Past Family History Father Family Medical History: Diabetes Mellitus, Hyperlipidemia, Prostate Disorder Additional Family Medical History / Comment(s): Type 2 DM, BPH Surgical - Exam Vital Signs Temp Pulse BP 98.2 F 82 114/78 05/14/21 14:21 05/14/21 14:21 05/14/21 14:21 - General well developed, well nourished, no distress - Eyes PERRL - ENT normal pinna - Neck no masses - Respiratory normal expansion - Cardiovascular Rhythm: regular - Abdomen Abdomen: soft, non tender Bariatric Assessment & Plan Plan: Patient LAP-BAND was just. She had 1 mL added to the band. She currently has 4 mL in the band. She is ill drink water without difficulty. She'll follow-up in 4 weeks. Bariatric Checklist Checklist: Plan: Checklist: EGD: 1. Hiatal hernia: 2. H. Pylori: HgbA1c: Vitamin D: Smoking: Former smoker Primary care physician referral: [facility] ([phone]) Psychiatry clearance: Cardiology clearance: Sleep study: Diet journal: VTE risk score: VTE risk level: Rehab needs at discharge:
== END ==
LOC: BARWHC3 13:37
PROVIDERS: ATTEND Surgery
DX: Z09 Encounter for follow-up examination after completed treatment for conditions other than malignant neoplasm (principal); Z98.84 Bariatric surgery status; Z87.891 Personal history of nicotine dependence
CPT/HCPCS: 99212

== ENCOUNTER → 2021-05-16 | Outpatient (CLI) | payer BC ==
[2021-05-16 14:57] VITALS: BP 107/67; PULSE 76; RESP 16; TEMP 97.6; BMI 30.2
--- NOTE | 2021-05-16 15:34 | P.HPBAR ---
Bariatric H&P - History & Physicial H&P Date: 05/16/21 History & Physicial: Visit/CC: Band adj Patient initial contact: Initial weight: 111.13 kg Initial weight in pounds: 245.00 Height: 5 ft 7 in Initial BMI: 38.3 Last weight: Current weight: 87.543 kg Current weight in pounds: 193.00 Current BMI: 30.2 [place] body weight (based on NIH guidelines): 61.235 kg Excess body weight loss: 47.2% The patient is a 36 year-old F who presents for Bariatric Assessment. Patient resents today for Cristobal fall. She states her band is too tight. Past Medical History Past Medical History: No Reported History History of Any Multi-Drug Resistant Organisms: None Reported Past Surgical History: Bariatric Surgery, Section, Cholecystectomy, Tubal Ligation Additional Past Surgical History / Comment(s): lap band placed [address] Kaufman, Tubal ligation x2, Right oopherectomy, cervical ablation, cervix removed, bilateral breast augmentation, x1 Past Anesthesia/Blood Transfusion Reactions: No Reported Reaction Additional Past Anesthesia/Blood Transfusion Reaction / Comm: No hx of blood transfusions to date Past Psychological History: No Psychological Hx Reported Smoking Status: Unknown if ever smoked Past Alcohol Use History: None Reported Additional Past Alcohol Use History / Comment(s): smoked 1pk day x 10 years. Quit 2008 Past Drug Use History: None Reported - Past Family History Father Family Medical History: Diabetes Mellitus, Hyperlipidemia, Prostate Disorder Additional Family Medical History / Comment(s): Type 2 DM, BPH Surgical - Exam Vital Signs Temp Pulse Resp BP 97.6 F 76 16 107/67 05/16/21 14:54 05/16/21 14:54 05/16/21 14:54 05/16/21 14:54 - General well developed, well nourished, no distress - Eyes PERRL - ENT normal pinna - Neck no masses - Respiratory normal expansion - Cardiovascular Rhythm: regular - Abdomen Abdomen: soft, non tender Bariatric Assessment & Plan Plan: Patient LAP-BAND was adjusted. She had 1 mL removed from her band. She'll follow-up in 2-3 weeks. Bariatric Checklist Checklist: Plan: Checklist: EGD: 1. Hiatal hernia: 2. H. Pylori: HgbA1c: Vitamin D: Smoking: Former smoker Primary care physician referral: [facility] ([phone]) Psychiatry clearance: Cardiology clearance: Sleep study: Diet journal: VTE risk score: VTE risk level: Rehab needs at discharge:
== END ==
LOC: BARWHC3 13:15
PROVIDERS: ATTEND Surgery
DX: Z46.51 Encounter for fitting and adjustment of gastric lap band (principal); Z98.84 Bariatric surgery status; Z87.891 Personal history of nicotine dependence
CPT/HCPCS: 99212

== ENCOUNTER → 2023-04-07 | Outpatient (CLI) | payer BC ==
[2023-04-07 09:51] VITALS: BP 111/76; PULSE 76; TEMP 97.8; BMI 25.3
--- NOTE | 2023-04-23 08:00 | P.HPBAR ---
Bariatric H&P - History & Physicial H&P Date: 04/07/23 History & Physicial: Visit/CC: lap band adj Patient initial contact: Initial weight: 111.13 kg Initial weight in pounds: 245.00 Height: 5 ft 7 in Initial BMI: 38.3 Last weight: Current weight: 73.482 kg Current weight in pounds: 162.00 Current BMI: 25.3 [place] body weight (based on NIH guidelines): 61.235 kg Excess body weight loss: 75.4% The patient is a 38 year-old F who presents for Bariatric Assessment. Patient safe for LAP-BAND adjustment. She is requesting her band being empty. She's had some trouble with dysphagia. Past Medical History Past Medical History: No Reported History History of Any Multi-Drug Resistant Organisms: None Reported Past Surgical History: Bariatric Surgery, Section, Cholecystectomy, Tubal Ligation Additional Past Surgical History / Comment(s): lap band placed [address] Kaufman, Tubal ligation x2, Right oopherectomy, cervical ablation, cervix removed, bilateral breast augmentation, x1 Past Anesthesia/Blood Transfusion Reactions: No Reported Reaction Additional Past Anesthesia/Blood Transfusion Reaction / Comm: No hx of blood transfusions to date Smoking Status: Unknown if ever smoked - Past Family History Father Family Medical History: Diabetes Mellitus, Hyperlipidemia, Prostate Disorder Additional Family Medical History / Comment(s): Type 2 DM, BPH Surgical - Exam Vital Signs Temp Pulse BP 97.8 F 76 111/76 04/07/23 09:33 04/07/23 09:33 04/07/23 09:33 - General well developed, no distress - Eyes PERRL - ENT normal pinna - Neck no masses - Respiratory normal expansion - Cardiovascular Rhythm: regular - Abdomen Abdomen: soft, non tender Bariatric Assessment & Plan Plan: Patient's LAP-BAND was empty. She had 5 mL refer band. She'll follow-up in 4 weeks. Bariatric Checklist Checklist: Plan: Checklist: EGD: 1. Hiatal hernia: 2. H. Pylori: HgbA1c: Vitamin D: Smoking: Former smoker Primary care physician referral: [facility], [facility] ([phone]) Psychiatry clearance: Cardiology clearance: Sleep study: Diet journal: VTE risk score: VTE risk level: Rehab needs at discharge:
== END ==
LOC: BARWHC3 09:08
PROVIDERS: ATTEND Surgery
DX: Z90.721 Acquired absence of ovaries, unilateral (principal); Z90.710 Acquired absence of both cervix and uterus; Z87.891 Personal history of nicotine dependence
CPT/HCPCS: 99211